=== PATIENT | female | born 1995 | race African-American/Black ===

== ENCOUNTER 2017-06-02 20:04 | Emergency (ER) | payer SELFPAY ==
[2017-06-02 20:11] VITALS: BP 131/76; PULSE 93; TEMP 98.8; BMI 48.2
--- NOTE | 2017-06-02 20:26 | PDOC ---
History of Present Illness - General History Source: Patient Exam Limitations: No Limitations - History of Present Illness Initial Comments: 06/02/17 21:05 21 y/o F with no significant PMHx presents to the ED with nausea, vomiting x 3 and diarrhea x 3 today. Patient reports associated subjective fever and headache. She states that her stool was very dark in color. She denies hematemesis. She states that pork usually bothers her, but she ate it anyway twice yesterday. Since then, she has had these symptoms. Denies chest pain, SOB. Denies chills. Denies any other complaints. PAST MEDICAL HISTORY: no significant history PAST SURGICAL HISTORY: no significant history FAMILY HISTORY: no pertinent history SOCIAL HISTORY: Pt lives with family and is employed. MEDICATIONS: reviewed ALLERGIES: As per nursing notes Review of Systems: General: (+) subjective fever. No chills, no weakness, no weight loss HEENT: No change in vision. No sore throat,. No ear pain CardioVascular: No chest pain or shortness of breath Respiratory: No cough, or wheezing. Gastrointestinal: (+) nausea, vomiting, diarrhea. No constipation, No rectal bleeding Genitourinary: No dysuria, hematuria, or frequency Musculoskeletal: No joint or muscle pain or swelling Neurologic: (+) headache, No vertigo, dizziness or loss of consciousness Psychiatric: No depression Skin: No rashes or easy bruising Endocrine: No increased thirst or abnormal weight change Allergic: No skin or latex allergy All other systems reviewed and normal Physical Exam: GENERAL: The patient is awake, alert, and fully oriented, in no acute distress. HEAD: Normal with no signs of trauma. EYES: Pupils equal, round and reactive to light, extraocular movements intact, sclera anicteric, conjunctiva clear. EXTREMITIES: Normal range of motion, no edema. NEUROLOGICAL: Normal speech, normal gait. PSYCH: Normal mood, normal affect. SKIN: Warm, Dry, normal turgor, no rashes or lesions noted. RECTAL: Normal brown stool. No gross blood. No melena <Vandana Webster - Last Filed: 06/02/17 21:05> - General History Source: Patient Exam Limitations: No Limitations - History of Present Illness Initial Comments: 06/02/17 23:28 A portion of this note was documented by scribe services under my direction. I have reviewed the details of the note, within reason, and agree with the documentation. The case summary and management plan written by me. This is a 21-year-old female who has had some nausea vomiting and diarrhea earlier in the day but is able to tolerate by mouth's later in the day. Patient attributes his symptoms to her eating beef and pork. Patient denied any fevers pain or any other complaints. Patient appeared well-hydrated and in the emergency room and was tolerating liquids. Patient discharged home. <Jarred Case I - Last Filed: 06/02/17 23:29> - General Chief Complaint: Nausea/Vomiting Stated Complaint: N/V/D Time Seen by Provider: 06/02/17 20:08 Past History <Vandana Wesbter - Last Filed: 06/02/17 21:05> - Past Medical History Other medical history: DENIES - Suicide/Smoking/Psychosocial Hx Smoking History: Never smoked Hx Alcohol Use: No Drug/Substance Use Hx: No Substance Use Type: None <Jarred Case I - Last Filed: 06/02/17 23:29> - Past Medical History Allergies/Adverse Reactions: Allergies Allergy/AdvReac Type Severity Reaction Status Date / Time No Known Allergies Allergy Verified 04/12/16 11:13 Home Medications: Ambulatory Orders NK [No Known Home Medication] 06/02/17 *Physical Exam - Vital Signs Last Vital Signs Temp Pulse Resp BP Pulse Ox 98.8 F 93 H 20 131/76 98 06/02/17 20:07 06/02/17 20:07 06/02/17 20:07 06/02/17 20:07 06/02/17 20:07 <Vandana Webster A - Last Filed: 06/02/17 21:05> - Vital Signs Last Vital Signs Temp Pulse Resp BP Pulse Ox 98.8 F 93 H 20 131/76 98 06/02/17 20:07 06/02/17 20:07 06/02/17 20:07 06/02/17 20:07 06/02/17 20:07 <Jarred Case I - Last Filed: 06/02/17 23:29> *DC/Admit/Observation/Transfer - Attestations Scribe Attestion: 06/02/17 21:05 Documentation prepared by Vandana Webster, acting as medical device sales consultant for Jarred Case MD. <Vandana Webster - Last Filed: 06/02/17 21:05> - Discharge Dispostion Decision to Admit order Date/Time: 06/02/17 20:58 Clear liquids only for the next 6 hours.. After that if you have had no further vomiting you may have bananas, rice, applesauce, or toast. If no further vomiting for another 8 hours you may have regular food. If you vomit again then nothing to eat or drink for 2 hours. then start back with the clear liquids. Return to the emergency department immediately with ANY new, persistent or worsening symptoms. You MUST call and follow up with your doctor tomorrow if not better. Please make sure your doctor reviews the results of your emergency evaluation. Thank you for coming to the Emergency Department today for your care. It was a pleasure to see you today. Please note that your evaluation is INCOMPLETE until you follow-up with your doctor. <Jarred Case I - Last Filed: 06/02/17 23:29> Diagnosis at time of Disposition: Nausea vomiting and diarrhea - Discharge Dispostion Disposition: HOME Condition at time of disposition: Stable - Patient Instructions Additional Instructions: Clear liquids only for the next 6 hours.. After that if you have had no further vomiting you may have bananas, rice, applesauce, or toast. If no further vomiting for another 8 hours you may have regular food. If you vomit again then nothing to eat or drink for 2 hours. then start back with the clear liquids. Return to the emergency department immediately with ANY new, persistent or worsening symptoms. You MUST call and follow up with your doctor tomorrow if not better. Please make sure your doctor reviews the results of your emergency evaluation. Thank you for coming to the Emergency Department today for your care. It was a pleasure to see you today. Please note that your evaluation is INCOMPLETE until you follow-up with your doctor.
== END 2017-06-02 21:16 | disposition home or self-care (01) ==
LOC: FER 20:04
DX: R11.2 Nausea with vomiting, unspecified (principal); R19.7 Diarrhea, unspecified
CPT/HCPCS: 82272; 99282-25

== ENCOUNTER 2017-10-04 21:04 | Emergency (ER) | payer SELFPAY ==
[2017-10-04 21:25] VITALS: BP 108/83; PULSE 79; TEMP 98.3; BMI 50.3
[2017-10-04 22:14] LABS: BASO % 2.4 % (0-2.0); EOS % 1.1 % (0-4.5); HEMATOCRIT 33.4 % (32.4-45.2); HEMOGLOBIN 11.1 GM/dl (10.7-15.3); LYMPH % 32.2 % (8-40); MCH 23.8 pg (25.7-33.7); MCHC 33.3 g/dl (32.0-36.0); MEAN CELL VOLUME 71.7 fl (80-96); MEAN PLT VOLUME 7.9 fl (7.5-11.1); NEUT % 57.3 % (42.8-82.8); PLATELET COUNT 353 K/MM3 (134-434); RBC 4.66 M/mm3 (3.60-5.2); RDW 16.1 % (11.6-15.6); WHITE BLOOD COUNT 6.4 K/mm3 (4.0-10.8)
[2017-10-04 22:27] LABS: ALBUMIN 3.8 g/dl (3.5-5.0); ALK PHOS 55 U/L (32-92); ANION GAP 4 (8-16); BILIRUBIN,TOTAL 0.6 mg/dl (0.2-1.0); BLOOD UREA NITROGEN 14 mg/dl (7-18); CALCIUM 8.9 mg/dl (8.4-10.2); CHLORIDE 103 mmol/L (98-107); CO2 29 mmol/L (22-28); CREATININE 0.7 mg/dl (0.6-1.3); GLUCOSE,RANDOM 128 mg/dl (74-106); POTASSIUM 3.7 mmol/L (3.5-5.1); SGOT/AST 18 U/L (10-42); SGPT/ALT 17 U/L (10-40); SODIUM 136 mmol/L (136-145); TOT PROT 7.3 g/dl (6.4-8.3)
--- NOTE | 2017-10-04 22:30 | PDOC ---
History of Present Illness - General Chief Complaint: Chest Pain Stated Complaint: MID STERNAL CHEST PAIN FOR 1MONTH Time Seen by Provider: 10/04/17 21:08 - History of Present Illness Initial Comments: 10/04/17 22:23 22 F with no PMH presents to ER with L sided chest and arm pain. She states it is worse with certain movements and carrying things. Pt denies SOB. Denies pleuritic or exertional pain. Denies leg swelling. Denies FH of MA. Denies recent travel/immobilization. Denies OCP use. Does not believe she is . Past History - Past Medical History Allergies/Adverse Reactions: Allergies Allergy/AdvReac Type Severity Reaction Status Date / Time No Known Allergies Allergy Verified 10/04/17 21:07 Home Medications: Ambulatory Orders NK [No Known Home Medication] 10/04/17 COPD: No Other medical history: DENIES - Suicide/Smoking/Psychosocial Hx Smoking History: Never smoked Information on smoking cessation initiated: No Hx Alcohol Use: Yes (SOCIAL) Drug/Substance Use Hx: No Substance Use Type: Alcohol Review of Systems - Review of Systems Comments:: 10/04/17 22:25 "GENERAL/CONSTITUTIONAL: No fever or chills. No weakness. HEAD, EYES, EARS, NOSE AND THROAT: No change in vision. No ear pain or discharge. No sore throat. CARDIOVASCULAR: + chest pain no shortness of breath. RESPIRATORY: No cough, wheezing, or hemoptysis. GASTROINTESTINAL: No nausea, vomiting, diarrhea or constipation. GENITOURINARY: No dysuria, frequency, or change in urination. MUSCULOSKELETAL: No joint or muscle swelling or pain. No neck or back pain. SKIN: No rash NEUROLOGIC: No headache, vertigo, loss of consciousness, or change in strength/ sensation. ENDOCRINE: No increased thirst. No abnormal weight change. HEMATOLOGIC/LYMPHATIC: No anemia, easy bleeding, or history of blood clots. ALLERGIC/IMMUNOLOGIC: No hives or skin allergy. *Physical Exam - Vital Signs Last Vital Signs Temp Pulse Resp BP Pulse Ox 98.3 F 79 20 108/83 100 10/04/17 21:06 10/04/17 21:06 10/04/17 21:06 10/04/17 21:06 10/04/17 21:06 - Physical Exam Comments: 10/04/17 22:30 "GENERAL: Awake, alert, and fully oriented, in no acute distress HEAD: No signs of trauma EYES: PERRLA, EOMI, sclera anicteric, conjunctiva clear ENT: Auricles normal inspection, hearing grossly normal, nares patent, oropharynx clear without exudates. Moist mucosa NECK: Nontender, no stepoffs, Normal ROM, supple, no lymphadenopathy, JVD, or masses LUNGS: Breath sounds equal, clear to auscultation bilaterally. No wheezes, and no crackles HEART: Regular rate and rhythm, normal S1 and S2, no murmurs, rubs or gallops ABDOMEN: Soft, nontender, normoactive bowel sounds. No guarding, no rebound. No masses EXTREMITIES: Normal range of motion, no edema. No clubbing or cyanosis. No cords, erythema, or tenderness NEUROLOGICAL: Cranial nerves II through XII intact. 5/5 strength and sensation in all extremities, Normal speech, normal gait SKIN: Warm, Dry, normal turgor, no rashes or lesions noted. " Heart Score/ECG Review - History History: Slightly suspicious - Electrocardiogram EKG: Normal - Age Age: </= 45 - Risk Factors Risk Factors Heart Score: Yes Hx Obesity Based on the list above the patient has:: 1-2 risk factors - Troponin Troponin: </= normal limit - Score Heart Score - Total: 1 - ECG Impressions Comment:: 10/04/17 22:30 NSR, no RAZ/STDs, no TWIs, axis wnl, intervals wnl, rate 77 ED Treatment Course - LABORATORY CBC & Chemistry Diagram: 10/04/17 22:00 10/04/17 22:00 - ADDITIONAL ORDERS Additional order review: 10/04/17 22:00 RBC 4.66 MCV 71.7 L MCHC 33.3 RDW 16.1 H MPV 7.9 Neutrophils % 57.3 Lymphocytes % 32.2 Monocytes % 7.0 Eosinophils % 1.1 Basophils % 2.4 H - RADIOLOGY Radiology Studies Ordered: Category Date Time Status CHEST PA & LAT [RAD] Stat Radiology 10/04/17 21:53 Completed - Medications Given in the ED: ED Medications Discontinued Medications Generic Name Dose Route Start Last Admin Trade Name Freq PRN Reason Stop Dose Admin Ketorolac Tromethamine 30 mg 10/04/17 22:32 10/04/17 23:14 Toradol Injection - IM 10/04/17 22:33 30 mg ONCE ONE Administration Medical Decision Making - Medical Decision Making 10/04/17 22:30 22 F with 1 month of positional chest pain. Likely msk. Pt with no ACS risk factors, non-ischemic EKG. Pt with no PE risk factors. PERC score 0. - Labs, trop - CXR 10/05/17 00:10 Labs and trop wnl. CXR shows no cardiopulmonary disease but is notable for distended loop of bowel. Pt reassessed - she reports no nausea or vomiting, no constipation or abdominal distention. Pt is well appearing, vitals normal. Clinically stable for DC. I discussed the physical exam findings, ancillary test results and final diagnoses with the patient. I answered all of the patient's questions. The patient was satisfied with the care received and felt comfortable with the discharge plan and treatment plan. The patient agrees to follow up with the primary care physician within 24-72 hours. *DC/Admit/Observation/Transfer Diagnosis at time of Disposition: Chest pain - Discharge Dispostion Disposition: HOME Condition at time of disposition: Stable - Referrals Referrals: Kofi Nunn MD [Staff Physician] - - Patient Instructions Printed Discharge Instructions: DI for Atypical Chest Pain Additional Instructions: Please follow up with a snaker regarding your chest pain. Even though your tests today were normal, you may still have underlying heart disease and will need a full cardiac work up by a snaker. Call the number provided to make an appointment with our snaker. If you have any worsening chest pain, shortness of breath, or any other concerning symptoms, return to the ER immediately. Otherwise, follow up with your primary doctor within 1 week for a re-evaluation. - Post Discharge Activity - Attestations Physician Attestion: 10/05/17 00:14 I, Dr. David Blackwell MD, attest that this document has been prepared under my direction and personally reviewed by me in its entirety. I further attest, that it accurately reflects all work, treatment, procedures and medical decision -making performed by me.
[2017-10-04] MEDS ORDERED: KETOROLAC TROMETHAMINE 30 MG/1 ML VIAL IM ONE (22:32)
[2017-10-04] MEDS ORDERED: KETOROLAC TROMETHAMINE 30 MG/1 ML VIAL ONE (23:10)
--- NOTE | 2017-10-06 10:53 | EKG ---
Test Reason : Blood Pressure : / mmHG Vent. Rate : 077 BPM Atrial Rate : 077 BPM P-R Int : 158 ms QRS Dur : 080 ms QT Int : 370 ms P-R-T Axes : 057 027 028 degrees QTc Int : 418 ms NORMAL SINUS RHYTHM NORMAL ECG NO PREVIOUS ECGS AVAILABLE Confirmed by BERT EDMONDS MD ([id number]) on 10/06/2017 10:52:59 AM Referred By: DR OLIVER Confirmed By:BERT EDMONDS MD
== END 2017-10-05 00:25 | disposition home or self-care (01) ==
LOC: FER 21:04
PROC: 3E0233Z Introduction of Anti-inflammatory into Muscle, Percutaneous Approach (ICD-10-PCS; principal; 2017-10-04)
DX: R07.9 Chest pain, unspecified (principal)
CPT/HCPCS: 36415; 71046-TC-FY; 80053; 82550; 84484; 84703; 85025; 93005; 99282-25

== ENCOUNTER 2018-05-02 16:55 | Emergency (ER) | payer OTHER ==
[2018-05-02 17:18] VITALS: BP 114/70; PULSE 71; TEMP 98.4; BMI 48.5
--- NOTE | 2018-05-02 17:49 | PDOC ---
History of Present Illness - General Chief Complaint: Rash Stated Complaint: RASH ARMS,CHEST LEGS Time Seen by Provider: 05/02/18 16:57 History Source: Patient Exam Limitations: No Limitations - History of Present Illness Initial Comments: 05/02/18 17:47 The patient is a 22F with no PMH who presents to the ER with a rash x 2 weeks. The patient is with her daughter who has a similar rash. The rash has been present for 2 weeks, is itchy, mostly at night, and not associated with fever, chills, nausea, vomiting, or desquamation. The pt has a similar rash after sleeping on her friends couch. Past History - Past Medical History Allergies/Adverse Reactions: Allergies Allergy/AdvReac Type Severity Reaction Status Date / Time No Known Allergies Allergy Verified 05/02/18 16:56 Home Medications: Ambulatory Orders Permethrin 5% Topical Cream [Elimite -] 1 applic TP ONCE #1 tube 05/02/18 COPD: No - Suicide/Smoking/Psychosocial Hx Smoking History: Never smoked Have you smoked in the past 12 months: No Information on smoking cessation initiated: Yes Hx Alcohol Use: No Drug/Substance Use Hx: Yes Substance Use Type: Alcohol Review of Systems - Review of Systems Able to Perform ROS?: Yes Comments:: 05/02/18 17:48 GENERAL/CONSTITUTIONAL: No fever or chills. No weakness. HEAD, EYES, EARS, NOSE AND THROAT: No change in vision. No ear pain or discharge. No sore throat. MUSCULOSKELETAL: No joint or muscle swelling or pain. No neck or back pain. SKIN: Positive for rash. No lesions. NEUROLOGIC: No headache, numbness, tingling, focal weakness, loss of consciousness, or change in strength/sensation. Is the patient limited Occitan proficient: No *Physical Exam - Vital Signs Last Vital Signs Temp Pulse Resp BP Pulse Ox 98.4 F 71 20 114/70 100 05/02/18 16:56 05/02/18 16:56 05/02/18 16:56 05/02/18 16:56 05/02/18 16:56 - Physical Exam Comments: 05/02/18 17:48 GENERAL: Well developed, well nourished. Awake and alert. No acute distress. HEENT: Normocephalic, atraumatic. Hearing grossly normal. Moist mucous membranes. PERRLA, EOMI. No conjunctival pallor. Sclera are non-icteric. MUSCULOSKELETAL: Normal range of motion at all joints. No bony deformities or tenderness. EXTREMITIES: No cyanosis. No clubbing. No edema. No calf tenderness or swelling. SKIN: Diffuse papular erythematous rash especially around arms, armpits, and abdomen. Otherwise, warm and dry. Normal capillary refill. No jaundice. NEUROLOGICAL: Alert, awake, appropriate. Cranial nerves 2-12 grossly intact. Normal speech. Gait is normal without ataxia. PSYCHIATRIC: Cooperative. Good eye contact. Appropriate mood and affect. Medical Decision Making - Medical Decision Making 05/02/18 17:48 The patient is a 22F who presents with 2 weeks of rash in the distribution of scabies. I have informed the patient to put the cream on for 24 hours and clean everything with cloth. *DC/Admit/Observation/Transfer Diagnosis at time of Disposition: Scabies - Discharge Dispostion Disposition: HOME Condition at time of disposition: Stable Decision to Admit order: No - Prescriptions Prescriptions: Permethrin 5% Topical Cream [Elimite -] 1 applic TP ONCE #1 tube - Referrals - Patient Instructions Additional Instructions: You were diagnosed with scabies. Please put the cream on for 24 hours. Clean EVERYTHING made of cloth in HOT water. Follow up with your primary care doc as needed. - Post Discharge Activity Forms/Work/School Notes: Back to Work
--- NOTE | 2018-05-02 17:55 | PDOC ---
Attending Attestation - Resident Resident Name: Waldo Starr - ED Attending Attestation I have performed the following: I have examined & evaluated the patient, The case was reviewed & discussed with the resident, I agree w/resident's findings & plan, Exceptions are as noted - HPI HPI: 05/02/18 17:54 Agree with residents HPI - Physicial Exam PE: 05/02/18 17:54 Agree with Residents PE - Medical Decision Making 05/02/18 17:54 History examination consistent with partially treated scabies. We'll recommend 24 hours permethrin strict instructions to wash clothes and all household items Findings, the need for follow-up and strict return instructions discussed with patient and family.
== END 2018-05-02 17:56 | disposition home or self-care (01) ==
LOC: FER 16:55
DX: B86 Scabies (principal)
CPT/HCPCS: 99281-25

== ENCOUNTER 2018-10-02 08:07 | Emergency (ER) | payer OTHER ==
[2018-10-02 08:12] VITALS: BP 132/87; PULSE 96; TEMP 97.5
--- NOTE | 2018-10-02 08:17 | PDOC ---
History of Present Illness - General Chief Complaint: Cold Symptoms Stated Complaint: flulike symptoms x 4 days Time Seen by Provider: 10/02/18 08:09 - History of Present Illness Initial Comments: 10/02/18 08:23 23yo F with no sig PMH presents to the emergency department with 4 days of throat and b/l ear pain. Throat pain worse when she swallows, is sharp. No problems swallowing, does not feel throat is closing. Also reports pain in both ears, non-productive cough, 2 episodes of NB diarrhea yesterday and feeling queasy although has been able to eat breakfast and drink her [employer] iced coffee this morning. Denies fevers, CP/SOB, abdominal pain. No treatments tried , has not seen PMD as she does not have one. Pt reports her daughter has had a cold recently. Past History - Past Medical History Allergies/Adverse Reactions: Allergies Allergy/AdvReac Type Severity Reaction Status Date / Time No Known Allergies Allergy Verified 10/02/18 08:08 Home Medications: Ambulatory Orders NK [No Known Home Medication] 10/02/18 COPD: No Other medical history: pt denies - Suicide/Smoking/Psychosocial Hx Smoking History: Current every day smoker Have you smoked in the past 12 months: No Information on smoking cessation initiated: Yes Hx Alcohol Use: Yes (socially) Drug/Substance Use Hx: No Substance Use Type: Alcohol Review of Systems - Review of Systems Comments:: 10/02/18 08:41 GENERAL/CONSTITUTIONAL: No fever, +chills. No weakness. HEAD, EYES, EARS, NOSE AND THROAT: No change in vision. +b/l ear pain, no discharge. +sore throat. GASTROINTESTINAL: +nausea, no vomiting, +diarrhea, no constipation. GENITOURINARY: No dysuria, frequency, or change in urination. CARDIOVASCULAR: No chest pain or shortness of breath. RESPIRATORY: +cough, no wheezing, or hemoptysis. MUSCULOSKELETAL: No joint or muscle swelling or pain. No neck or back pain. SKIN: No rash NEUROLOGIC: No headache, vertigo, loss of consciousness, or change in strength/ sensation. ENDOCRINE: No increased thirst. No abnormal weight change. HEMATOLOGIC/LYMPHATIC: No anemia, easy bleeding, or history of blood clots. ALLERGIC/IMMUNOLOGIC: No hives or skin allergy. *Physical Exam - Vital Signs Last Vital Signs Temp Pulse Resp BP Pulse Ox 97.5 F L 96 H 18 132/87 100 10/02/18 08:07 10/02/18 08:07 10/02/18 08:07 10/02/18 08:07 10/02/18 08:07 - Physical Exam Comments: 10/02/18 08:50 GENERAL: Awake, alert, and fully oriented, in no acute distress. Non toxic chatting with her friend at the bedside HEAD: No signs of trauma EYES: PERRLA, EOMI, sclera anicteric, conjunctiva clear ENT: b/l ears with no erythema in TM, dulled light reflex with effusion behind TM, no bulging. Hearing grossly normal, nares patent, oropharynx with mild posterior erythema but without exudates. Moist mucosa NECK: Normal ROM, supple, no lymphadenopathy, masses LUNGS: Breath sounds equal, clear to auscultation bilaterally. No wheezes, and no crackles HEART: Regular rate and rhythm, normal S1 and S2, no murmurs, rubs or gallops ABDOMEN: Soft, nontender, normoactive bowel sounds. No guarding, no rebound. No masses EXTREMITIES: Normal range of motion, no edema. No cords, erythema, or tenderness NEUROLOGICAL: Normal speech, cranial nerves intact, equal strength and sensation b/l. Normal gait. SKIN: Warm, Dry, normal turgor, no rashes or lesions noted. Moderate Sedation - Procedure Monitoring Vital Signs: Procedure Monitoring Vital Signs Temperature 97.5 F L 10/02/18 08:07 Pulse Rate 96 H 10/02/18 08:07 Respiratory Rate 18 10/02/18 08:07 Blood Pressure 132/87 10/02/18 08:07 O2 Sat by Pulse Oximetry (%) 100 10/02/18 08:07 Medical Decision Making - Medical Decision Making 10/02/18 08:15 23yo F, healthy presents to the ED with flu like symptoms for 4 days Vitals unremarkable Pt well appearing, non toxic, exam only with mild posterior OP erythema Likely viral syndrome, no need for labs or CXR as pt is well appearing and lungs are clear, O2 sat 100%. Flu swab will not private branch exchange repairer as pt is w/o comorbidities and out of treatment window Plan for UPT, zofran ODT and toradol if UPT neg Plan discussed with pt who is agreement. 10/02/18 08:58 UPT neg Toradol given pt feels well, remains well appearing, referred to PMD for f/u I discussed the physical exam findings, ancillary test results and final diagnoses with the patient. I answered all of the patient's questions. The patient was satisfied with the care received and felt comfortable with the discharge plan and treatment plan. The patient will call their primary care physician within 24 hours to arrange follow-up and will return to the Emergency Department with any new, persistent or worsening symptoms. *DC/Admit/Observation/Transfer Diagnosis at time of Disposition: Ear pain, Viral syndrome, Sore throat - Discharge Dispostion Disposition: HOME Condition at time of disposition: Stable Decision to Admit order: No - Referrals Referrals: [facility] [Provider Group] - Patient Instructions Printed Discharge Instructions: DI for Viral Syndrome Additional Instructions: Follow up with a primary care doctor within 1 week. A referral has been provided. Drink plenty of fluids and stay hydrated. Take motrin 600mg every 6 hours as needed for pain. Return to the emergency department if you have any new, worsening, or concerning symptoms Feel better soon! - Post Discharge Activity Forms/Work/School Notes: Back to Work - Attestations Physician Attestion: 10/02/18 09:01 I, Dr. Harmeet Tenorio MD, attest that this document has been prepared under my direction and personally reviewed by me in its entirety. I further attest, that it accurately reflects all work, treatment, procedures and medical decision -making performed by me.
[2018-10-02] MEDS ORDERED: ONDANSETRON *ODT* 4 MG TABLET SL ONE (08:39)
[2018-10-02] MEDS ORDERED: ONDANSETRON *ODT* 4 MG TABLET ONE (08:42)
[2018-10-02] MEDS ORDERED: KETOROLAC TROMETHAMINE 30 MG/1 ML VIAL ONE (09:00)
[2018-10-02] MEDS: KETOROLAC TROMETHAMINE 15 MG/ML VIAL IM ONE ×2 (09:06→09:08)
== END 2018-10-02 09:14 | disposition home or self-care (01) ==
LOC: FER 08:07
PROC: 3E0233Z Introduction of Anti-inflammatory into Muscle, Percutaneous Approach (ICD-10-PCS; principal; 2018-10-02)
DX: B34.9 Viral infection, unspecified (principal); H92.03 Otalgia, bilateral; J02.9 Acute pharyngitis, unspecified
CPT/HCPCS: 84703; 99283-25; Q0162

== ENCOUNTER 2019-02-19 23:00 | Emergency (ER) | payer OTHER ==
[2019-02-19 23:06] VITALS: BP 122/84; PULSE 98; BMI 47.5
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
== END 2019-02-19 23:29 | disposition home or self-care (01) ==
LOC: FER 23:00
PROC: 0CQ1XZZ Repair Lower Lip, External Approach (ICD-10-PCS; principal; 2019-02-19)
DX: S01.521A Laceration with foreign body of lip, initial encounter (principal); Y04.2XXA Assault by strike against or bumped into by another person, initial encounter; Y93.9 Activity, unspecified; Y92.9 Unspecified place or not applicable
CPT/HCPCS: 99281-25

== ENCOUNTER 2019-03-14 20:31 | Emergency (ER) | payer OTHER ==
[2019-03-14 20:41] VITALS: BP 141/83; PULSE 88; TEMP 98; BMI 47.5
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
== END 2019-03-14 21:02 | disposition home or self-care (01) ==
LOC: FER 20:31
DX: Z48.02 Encounter for removal of sutures (principal)
CPT/HCPCS: 99281-25